=== PATIENT | female | born 1955 | race Caucasian/White ===

== ENCOUNTER 2017-10-06 13:14 | Day surgery (SDC) | payer BC ==
[~2017-10-06 13:14] MED LIST: LACTATED RINGER'S 1,000 ML IV*
[2017-10-06] MEDS ORDERED: BUPIVACAINE 0.5% (SDV) 30 ML INJ (15:14)
[2017-10-06] MEDS ORDERED: ONDANSETRON 4 MG INJ (15:32)
[2017-10-06] MEDS ORDERED: MIDAZOLAM 1 MG/ML 2 ML INJ (15:32)
[2017-10-06] MEDS ORDERED: NEOSTIGMINE 3 MG/3 ML SYRINGE (15:32)
[2017-10-06] MEDS ORDERED: PROPOFOL 20 ML (15:32)
[2017-10-06] MEDS ORDERED: GLYCOPYRROLATE 0.4 MG INJ (15:32)
[2017-10-06] MEDS ORDERED: ROCURONIUM 50 MG INJ (15:32)
[2017-10-06] MEDS ORDERED: FENTAnyl 50 MCG/ML VIAL (15:32)
[2017-10-06] MEDS ORDERED: CEFAZOLIN 1 GM INJ (15:32)
[2017-10-06] MEDS ORDERED: DEXAMETHASONE 4 MG/ML 1 ML INJ (15:32)
[2017-10-06] MEDS ORDERED: ROPIVACAINE 0.5 % 30 ML VIAL (15:36)
[2017-10-06] MEDS: POLYMYXIN/BACITRACIN 1L IRRIG (16:08)
[2017-10-06] MEDS ORDERED: EPHEDrine SULFATE 50 MG/5 ML SYG IV (16:30)
[2017-10-06] MEDS ORDERED: LABETALOL HCL 20MG INJ IV (16:30)
[2017-10-06] MEDS ORDERED: hydrALAzine 20 MG INJ IV (16:30)
[2017-10-06] MEDS ORDERED: HYDROmorphONE (0.2 MG/ML) 10ML SYG IV ×3 (16:30)
[2017-10-06] MEDS ORDERED: MIDAZOLAM 1 MG/ML 2 ML INJ IV (16:30)
[2017-10-06] MEDS ORDERED: DIPHENHYDRAMINE 50 MG INJ IV (16:30)
[2017-10-06] MEDS ORDERED: OXYCODONE/ACETAMINOPHEN (5/325) TAB PO ×3 (16:30→18:00)
[2017-10-06] MEDS ORDERED: FENTAnyl 50 MCG/ML VIAL IV ×3 (16:30)
[2017-10-06] MEDS ORDERED: MEPERIDINE 25 MG INJ IV (16:30)
[2017-10-06] MEDS ORDERED: IPRATROPIUM (NEB) 0.5 MG/2.5 ML AMP HHN (16:30)
[2017-10-06] MEDS ORDERED: TRIMETHOBENZAMIDE 100 MG/ML VIAL IM (16:30)
[2017-10-06] MEDS ORDERED: ALBUTEROL 0.083% (NEB) 2.5 MG/3 ML AMP HHN (16:30)
[2017-10-06] MEDS ORDERED: SUGAMMADEX SODIUM 200 MG/2 ML VIAL IV (16:49)
[2017-10-06] MEDS: ONDANSETRON 4 MG INJ IV ×2 (17:40→17:58)
== END 2017-10-06 18:30 | disposition home or self-care (01) ==
LOC: SDS 13:14
DX: S52.572A Other intraarticular fracture of lower end of left radius, initial encounter for closed fracture (principal); G56.02 Carpal tunnel syndrome, left upper limb; E66.9 Obesity, unspecified; Z68.41 Body mass index [BMI] 40.0-44.9, adult; G47.33 Obstructive sleep apnea (adult) (pediatric); J44.9 Chronic obstructive pulmonary disease, unspecified; W19.XXXA Unspecified fall, initial encounter; Y93.9 Activity, unspecified; Y99.9 Unspecified external cause status; Y92.9 Unspecified place or not applicable
CPT/HCPCS: 25609; 73110-LT